=== PATIENT | male | born 1985 | race African-American/Black ===

== ENCOUNTER 2017-04-21 20:47 | Emergency (ER) | payer SELFPAY ==
[2017-04-21] MEDS ORDERED: Adacel (T-DAP) 0.5 ML VIAL ONE (20:56)
[2017-04-21] MEDS ORDERED: Lidocaine 1% (PF) 30 ML VIAL ONE (21:00)
== END 2017-04-21 21:54 ==
LOC: ERS 20:47
DX: S01.511A Laceration without foreign body of lip, initial encounter (principal); K21.9 Gastro-esophageal reflux disease without esophagitis; F41.9 Anxiety disorder, unspecified; Z23 Encounter for immunization; F90.9 Attention-deficit hyperactivity disorder, unspecified type; W51.XXXA Accidental striking against or bumped into by another person, initial encounter; Y93.67 Activity, basketball
CPT/HCPCS: 12011; 90471; 90715; J2001

== ENCOUNTER 2018-06-29 14:29 | Emergency (ER) | payer SELFPAY ==
[2018-06-29] MEDS ORDERED: Ibuprofen 800 MG TAB ONE (15:22)
== END 2018-06-29 15:32 | disposition home or self-care (01) ==
LOC: ERS 14:29
DX: L03.011 Cellulitis of right finger (principal); K21.9 Gastro-esophageal reflux disease without esophagitis; F41.9 Anxiety disorder, unspecified; F17.210 Nicotine dependence, cigarettes, uncomplicated
CPT/HCPCS: 10060

== ENCOUNTER 2018-06-30 18:39 | Emergency (ER) | payer SELFPAY ==
[2018-06-30] MEDS ORDERED: Lidocaine 4% Cream 5 GM TUBE w/ Tegaderm ONE (19:27)
--- NOTE | 2018-06-30 19:44 | RAD ---
RIGHT MIDDLE FINGER THREE VIEWS: 06/30/18 HISTORY: Joint pain. There is no signs of fracture. Joint spaces appear well preserved. No soft tissue findings. IMPRESSION: Unremarkable right middle finger. POS: [facility]
[2018-06-30] MEDS ORDERED: Ibuprofen 200 MG TAB ONE (20:10)
== END 2018-06-30 20:15 | disposition home or self-care (01) ==
LOC: ERS 18:39
DX: L03.011 Cellulitis of right finger (principal); L02.511 Cutaneous abscess of right hand; K21.9 Gastro-esophageal reflux disease without esophagitis; F41.9 Anxiety disorder, unspecified; F90.9 Attention-deficit hyperactivity disorder, unspecified type; F17.210 Nicotine dependence, cigarettes, uncomplicated; Z79.899 Other long term (current) drug therapy
CPT/HCPCS: 10060

== ENCOUNTER 2018-10-22 23:10 | Emergency (ER) | payer SELFPAY ==
[2018-10-22 23:39] LABS: Bilirubin Negative (Negative); Blood, Urine Negative (Negative); Clarity CLEAR (Clear); Glucose, Urine (Dipstick) Negative (Negative); Leukocyte Small (Negative); Nitrite Negative (Negative); Protein, Urine (Dipstick) Negative (Neg-Trace); Specific Gravity, Urine 1.011 (1.002-1.036); Urobilinogen 0.2 mg/dL (0.2-1.0)
[2018-10-22 23:41] LABS: Bacteria/HPF None Seen HPF (None Seen); Hyaline Casts/LPF 0-3 HYALINE CAST LPF (0-3 Hyaline); Pathc Cast-AUWi Flag 0.13 (0-2.49); RBC/HPF 0-3 HPF (0-3); Squamous Epithelial 0-3 HPF (0-3)
[2018-10-23] MEDS ORDERED: cefTRIAXone\\ROCEPHIN 250 MG VIAL ONE (00:17)
[2018-10-23] MEDS ORDERED: Azithromycin 250 MG TAB ONE (00:17)
[2018-10-23] MEDS ORDERED: Lidocaine 1% PF 5 ML VIAL ONE (00:19)
[2018-10-24 19:07] LABS: Chlam.trachomatis by PCR,Urine DETECTED (NotDetected)
== END 2018-10-23 00:36 | disposition home or self-care (01) ==
LOC: ERS 23:10
DX: R36.9 Urethral discharge, unspecified (principal); R30.0 Dysuria; K21.9 Gastro-esophageal reflux disease without esophagitis; F31.9 Bipolar disorder, unspecified; F90.9 Attention-deficit hyperactivity disorder, unspecified type; F41.9 Anxiety disorder, unspecified; F17.210 Nicotine dependence, cigarettes, uncomplicated
CPT/HCPCS: 81003; 81015; 87491; 87591; 96372; J0696; J2001

== ENCOUNTER 2019-12-28 13:18 | Emergency (ER) | payer SELFPAY ==
[2019-12-28] MEDS ORDERED: cefTRIAXone\\ROCEPHIN 1 GM VIAL ONE (17:09)
== END 2019-12-28 17:38 | disposition home or self-care (01) ==
LOC: ERS 13:18
DX: S66.320A Laceration of extensor muscle, fascia and tendon of right index finger at wrist and hand level, initial encounter (principal); K21.9 Gastro-esophageal reflux disease without esophagitis; F41.9 Anxiety disorder, unspecified; F32.9 Major depressive disorder, single episode, unspecified; F90.9 Attention-deficit hyperactivity disorder, unspecified type; F17.210 Nicotine dependence, cigarettes, uncomplicated; Z79.899 Other long term (current) drug therapy; Z23 Encounter for immunization; W50.0XXA Accidental hit or strike by another person, initial encounter
CPT/HCPCS: 12001; 96374; J0696

== ENCOUNTER 2020-06-28 22:07 | Emergency (ER) | payer OTHER ==
[2020-06-28] MEDS ORDERED: HYDROcodone/Acetaminophen 5/325 mg Tablet ONE (23:09)
--- NOTE | 2020-06-28 23:33 | RAD ---
Exam: XR Ankle Lt 3 View STANDARD HISTORY: Left ankle pain. COMPARISON: 06/22/2020 FINDINGS: No acute fracture, dislocation, or other acute osseous abnormality is identified. The ankle mortise is congruent. Small posterior calcaneal enthesophyte is again noted. Subcutaneous s oft tissue swelling has improved. IMPRESSION: 1. No acute osseous abnormality. 2. Improvement in subcutaneous soft tissue swelling.
== END 2020-06-28 23:50 | disposition home or self-care (01) ==
LOC: ERS 22:07
DX: S93.402A Sprain of unspecified ligament of left ankle, initial encounter (principal); K21.9 Gastro-esophageal reflux disease without esophagitis; F17.210 Nicotine dependence, cigarettes, uncomplicated; X50.0XXA Overexertion from strenuous movement or load, initial encounter

== ENCOUNTER 2020-10-31 20:15 | Emergency (ER) | payer OTHER ==
[2020-10-31] MEDS ORDERED: HYDROcodone/Acetaminophen 10/325 mg Tablet ONE (21:54)
[2020-10-31] MEDS ORDERED: Bacitracin 1 PK ONE (21:54)
== END 2020-10-31 21:55 | disposition home or self-care (01) ==
LOC: ERS 20:15
DX: S60.440A External constriction of right index finger, initial encounter (principal); K21.9 Gastro-esophageal reflux disease without esophagitis; F17.210 Nicotine dependence, cigarettes, uncomplicated; W49.04XA Ring or other jewelry causing external constriction, initial encounter
CPT/HCPCS: 99283

== ENCOUNTER 2021-08-10 11:33 | Emergency (ER) | payer OTHER ==
[2021-08-10 12:20] LABS: #Eosinphils 0.1 thou/uL (0.0-0.7); #Lymphocytes 3.1 thou/uL (1.20-3.40); #Monocytes 0.4 thou/uL (0.11-0.59); #Neutrophils 2.7 thou/uL (1.40-6.50); %Basophils 0.7 % (0.0-1.0); %Eosinophils 1.6 % (0.0-10.0); %Lymphocytes 49.1 % (21.0-51.0); %Monocytes 5.6 % (0.0-10.0); %Neutrophils 43.1 % (42.0-75.0); Hemoglobin 15.7 g/dL (14.0-18.0); Mean Corpuscular HGB CONC 34.2 g/dL (32.0-36.0); Mean Corpuscular Hemoglobin 31.4 pg (27.0-31.0); Mean Corpuscular Volume 91.7 fL (78.0-98.0); Mean Platelet Volume 6.6 fL (7.4-10.4); Platelet Count 291 thou/uL (130-400); RBC Distribution Width 11.9 % (11.5-14.5); White Blood Cell (WBC) Count 6.4 thou/uL (4.8-10.8)
[2021-08-10 12:40] LABS: AST (SGOT) 19 U/L (5-34); Bilirubin, Total 0.8 mg/dL (0.2-1.2); Calcium 9.4 mg/dL (7.8-10.44); Chloride 105 mmol/L (98-107); Potassium 3.8 mmol/L (3.5-5.1); Sodium 138 mmol/L (136-145)
[2021-08-10 12:44] LABS: ALT (SGPT) 20 U/L (8-55); Albumin 3.9 g/dL (3.5-5.0); Alkaline Phosphatase 62 U/L (40-110); BUN (Urea Nitrogen) 8 mg/dL (8.9-20.6); Calc. Creatinine Clearance 0 mL/min (70-130); Carbon Dioxide 25 mmol/L (22-29); Globulin 2.7 g/dL (2.4-3.5); Glucose 107 mg/dL (70-105); Protein, Total 6.6 g/dL (6.0-8.3)
[2021-08-10 13:19] LABS: Anion Gap 11 mmol/L (10-20)
== END 2021-08-10 13:40 | disposition home or self-care (01) ==
LOC: ERS 11:33
DX: M94.0 Chondrocostal junction syndrome [Tietze] (principal); K21.9 Gastro-esophageal reflux disease without esophagitis; F17.210 Nicotine dependence, cigarettes, uncomplicated
CPT/HCPCS: 36415; 71045; 80053; 84484; 85025; 93005

== ENCOUNTER 2021-09-11 11:51 | Emergency (ER) | payer OTHER ==
[2021-09-11] MEDS ORDERED: Ondansetron ODT 4 MG TAB ONE (14:38)
== END 2021-09-11 15:57 ==
LOC: ERS 11:51
DX: Z53.21 Procedure and treatment not carried out due to patient leaving prior to being seen by health care provider (principal)
CPT/HCPCS: Q0162

== ENCOUNTER 2022-01-27 17:37 | Emergency (ER) | payer SELFPAY ==
[2022-01-27] MEDS ORDERED: Morphine 4 MG/ML VIAL ONE (18:25)
[2022-01-27] MEDS ORDERED: CEFAZOLIN 1 GM VIAL ONE (18:25)
[2022-01-27] MEDS ORDERED: Ondansetron PF 4 MG/2 ML Vial ONE (18:25)
== END 2022-01-27 20:23 | disposition home or self-care (01) ==
LOC: ERS 17:37
DX: S01.81XA Laceration without foreign body of other part of head, initial encounter (principal); M25.511 Pain in right shoulder; M25.541 Pain in joints of right hand; M25.572 Pain in left ankle and joints of left foot; K21.9 Gastro-esophageal reflux disease without esophagitis; F17.210 Nicotine dependence, cigarettes, uncomplicated; Z79.899 Other long term (current) drug therapy; Y04.0XXA Assault by unarmed brawl or fight, initial encounter
CPT/HCPCS: 71045; 96365; 96375; J0690; J2270; J2405

== ENCOUNTER 2023-05-19 11:03 | Emergency (ER) | payer SELFPAY ==
[2023-05-19] MEDS ORDERED: Cyclobenzaprine 10 MG TAB ONE (12:28)
[2023-05-19] MEDS ORDERED: Ketorolac Tromethamine 30 MG/ML VIAL ONE (12:29)
[2023-05-19 12:35] LABS: Bacteria/HPF None Seen HPF (None Seen); Bilirubin Negative (Negative); Blood, Urine Negative (Negative); CAUTI Indications for Culture Pelvic or flank pain; Clarity Clear (Clear); Glucose, Urine (Dipstick) Normal (Negative); Ketone, Urine Negative (Negative); Leukocyte Negative Leu/uL (Negative); Nitrite Negative (Negative); Protein, Urine (Dipstick) Negative (Neg-Trace); RBC/HPF 0-3 HPF (0-3); Specific Gravity, Urine 1.022 (1.002-1.036); Squamous Epithelial None Seen HPF (0-3); Urobilinogen Normal mg/dL (Less than 2); WBC/HPF 0-3 HPF (0-3); pH, Urine 6.5 (5.0-9.0)
[2023-05-19 12:42] LABS: Urine Culture Reflex No No
== END 2023-05-19 13:12 | disposition home or self-care (01) ==
LOC: ERS 11:03
DX: M54.50 Low back pain, unspecified (principal)
CPT/HCPCS: 72100; 81001; 96372; J1885